=== PATIENT | female | born 1965 | race Caucasian/White ===

== ENCOUNTER 2023-01-06 13:59 | Emergency (ER) | payer BC ==
[2023-01-06 14:20] VITALS: BP 140/80; PULSE 76; RESP 18; TEMP 98.6; BMI 23.1
== END 2023-01-06 15:45 | disposition home or self-care (01) ==
LOC: FER 13:59
DX: S93.501A Unspecified sprain of right great toe, initial encounter (principal); S99.921A Unspecified injury of right foot, initial encounter; M79.671 Pain in right foot; X58.XXXA Exposure to other specified factors, initial encounter; Y93.9 Activity, unspecified; Y92.9 Unspecified place or not applicable
CPT/HCPCS: 73630-TC-RT-FY; 99283-25